=== PATIENT | female | born 1945 | race Caucasian/White ===

== ENCOUNTER → 2025-01-14 14:02 | Outpatient (REF) | payer OTHER, SELFPAY | LOC: HWRCS 14:02 | PROVIDERS: ATTENDING PHYSICIAN Internal Medicine; FAMILY PHYSICIAN Family Medicine | DX: R03.0 Elevated blood-pressure reading, without diagnosis of hypertension (principal); I47.10 Supraventricular tachycardia, unspecified; E78.00 Pure hypercholesterolemia, unspecified | CPT/HCPCS: 93306 ==